=== PATIENT | male | born 1950 ===

== ENCOUNTER 2021-06-30 07:56 | Day surgery (SDC) | payer OTHER ==
[~2021-06-30 07:56] MED LIST: AMLODI PO; HYDROCHLOROTH12.5 MG PO; SYNTHROID100 MCG PO; TOPROL XL50 M1 PO; XARELTO20 MG PO; [UNRECOGNIZED DRUG - OTHER] PO
== END 2021-06-30 20:55 | disposition home or self-care (01) ==
LOC: CIR.AMB 07:56
PROVIDERS: ATTEND Urology
DX: C67.8 Malignant neoplasm of overlapping sites of bladder (principal); C67.2 Malignant neoplasm of lateral wall of bladder; Z20.822 Contact with and (suspected) exposure to COVID-19